=== PATIENT | female | born 1955 | race Two or more races ===

== ENCOUNTER 2018-04-07 18:39 | Emergency (ER) | payer OTHER ==
[~2018-04-07] VITALS: Ht 170.2 cm; Wt 78.9 kg
[~2018-04-07 18:39] MED LIST: DICLOFENAC SODI50 MG PO; METHOCARBAMOL500 MG PO; PERCOCET 5/3251 TAB PO
== END 2018-04-07 21:07 | disposition home or self-care (01) ==
LOC: ER 18:39
DX: M54.5 Low back pain (principal)

== ENCOUNTER → 2018-08-26 | Emergency (ER) | payer OTHER | END | disposition left against medical advice (07) | LOC: ER 00:25 | DX: Z53.20 Procedure and treatment not carried out because of patient's decision for unspecified reasons (principal) ==

== ENCOUNTER 2019-02-12 23:24 | Emergency (ER) | payer OTHER ==
[~2019-02-12] VITALS: Ht 167.6 cm; Wt 78.5 kg
== END 2019-02-13 15:33 | disposition home or self-care (01) ==
LOC: ER 23:24
DX: I16.0 Hypertensive urgency (principal); I10 Essential (primary) hypertension; G45.8 Other transient cerebral ischemic attacks and related syndromes

== ENCOUNTER 2022-01-15 12:34 | Emergency (ER) | payer OTHER ==
[~2022-01-15] VITALS: Ht 167.6 cm; Wt 76.2 kg
[2022-01-15] MEDS ORDERED: COZAAR50 MG PO (13:01)
[2022-01-15] MEDS ORDERED: TENORMIN25 MG PO (13:03)
== END 2022-01-15 16:05 | disposition home or self-care (01) ==
LOC: ER 12:34
DX: S93.601A Unspecified sprain of right foot, initial encounter (principal); X58.XXXA Exposure to other specified factors, initial encounter; Y93.9 Activity, unspecified; Y92.9 Unspecified place or not applicable; Y99.9 Unspecified external cause status; I10 Essential (primary) hypertension

== ENCOUNTER 2022-03-30 18:38 | Emergency (ER) | payer OTHER ==
[~2022-03-30] VITALS: Ht 167.6 cm; Wt 77.1 kg
[~2022-03-30 18:38] MED LIST changes: +COZAAR50 MG PO; +TENORMIN25 MG PO
== END 2022-03-30 20:12 | disposition home or self-care (01) ==
LOC: ER 18:38
DX: M79.602 Pain in left arm (principal); R51.9 Headache, unspecified; I10 Essential (primary) hypertension